=== PATIENT | female | born 1985 | race African-American/Black ===

== ENCOUNTER 2023-11-11 13:56 | Emergency (ER) | payer BC ==
[~2023-11-11] VITALS: Ht 170.2 cm; Wt 127.0 kg
[2023-11-11 14:06] VITALS: TEMP 99
[2023-11-11 14:32] LABS: BASOPHILS % 0.3 % (0.0-1.0); EOSINOPHILS # (AUTO) 0.3 (0.0-0.4); EOSINOPHILS % 3.6 % (0.0-6.0); HEMATOCRIT 37.8 % (34.2-44.1); HEMOGLOBIN 11.6 g/dL (12.0-16.0); LYMPHOCYTES # (AUTO) 3.2 (1.0-3.2); LYMPHOCYTES % 43.1 % (18.0-39.1); MEAN CORPUSCULAR HGB CONC 30.7 g/dL (31-35); MEAN CORPUSCULAR VOLUME 84.6 fL (81-99); MONOCYTES # (AUTO) 0.4 (0.2-0.8); MONOCYTES % 5.6 % (4.4-11.3); NEUTROPHILS # (AUTO) 3.5 (2.1-6.9); NEUTROPHILS % 47.1 % (38.7-80.0); PLATELET COUNT 314 x10e3/uL (140-360); RED BLOOD COUNT 4.47 x10e6/uL (3.6-5.1); RED CELL DISTRIBUTION WIDTH 14.6 % (11.7-14.4); WHITE BLOOD COUNT 7.45 x10e3/uL (4.8-10.8)
[2023-11-11 14:48] LABS: INR 0.98; PROTHROMBIN TIME 13.5 seconds (11.9-14.5)
[2023-11-11 14:49] LABS: PARTIAL THROMBOPLASTIN TIME 26.9 seconds (23.8-35.5)
[2023-11-11 14:56] LABS: ALANINE AMINOTRANSFERASE 15 IU/L (0-55); ALBUMIN/GLOBULIN RATIO 0.9 (0.8-2.0); ALKALINE PHOSPHATASE 82 IU/L (40-150); BILIRUBIN,TOTAL 0.6 mg/dL (0.2-1.2); BLOOD UREA NITROGEN 18 mg/dL (7-26); BUN/CREATININE RATIO 16 (6-25); CALCIUM 9.6 mg/dL (8.4-10.2); CREATININE, SERUM 1.13 mg/dL (0.57-1.11); EST GLOMERULAR FILTRATION RATE 63 ML/MIN (>=60); GLUCOSE 90 mg/dL (74-118); TOTAL PROTEIN 8.3 g/dL (6.5-8.1)
[2023-11-11 15:04] LABS: SODIUM 133 mmol/L (128-145)
[2023-11-11 15:05] LABS: ANION GAP 3.7 mmol/L (8-16); CARBON DIOXIDE 30 mmol/L (18-33); CHLORIDE 104 mmol/L (101-111); POTASSIUM 4.7 mmol/L (3.0-5.1)
[2023-11-11 15:07] LABS: TROPONIN I 0.004 ng/mL (0-0.300)
[2023-11-11] MEDS: SODIUM CHLORIDE 0.9% 1000ML 1,000 ML IV STA (15:24)
[2023-11-11 15:45] VITALS: PULSE 77; RESP 17
[2023-11-11 17:39] VITALS: BP 127/90; PULSE 80; RESP 16; TEMP 99; O2SAT 100
== END 2023-11-11 17:41 | disposition home or self-care (01) ==
LOC: ER 14:00
DX: R50.9 Fever, unspecified (principal); R07.89 Other chest pain; R20.2 Paresthesia of skin; E11.9 Type 2 diabetes mellitus without complications
CPT/HCPCS: 36415; 71045; 80053; 84484; 84702; 85025; 85379; 85610; 85730; 93005; 99284; J7030